=== PATIENT | female | born 1980 | race Caucasian/White ===

== ENCOUNTER 2020-08-17 11:15 | Outpatient (CLI) | payer OTHER, SELFPAY ==
[2020-08-18 14:03] LABS: SARS-CoV-2 RNA PCR Negative
== END 2020-08-17 11:16 | disposition home or self-care (01) ==
PROVIDERS: PCP Family Medicine; Visit Provider Family Medicine
DX: Z20.828 Contact with and (suspected) exposure to other viral communicable diseases (principal)
CPT/HCPCS: 87635; C9803; U0003

== ENCOUNTER 2020-11-08 12:58 | Emergency (ER) | payer OTHER, SELFPAY ==
[2020-11-08 13:34] VITALS: BP 139/103; PULSE 92; RESP 16; TEMP 37.6; O2SAT 97
--- NOTE | 2020-11-08 13:39 | ED.DENTAL ---
HPI - Dental/Oral General Chief complaint: Dental/Oral Stated complaint: Swollen left side of face Time Seen by Provider: 11/08/20 13:50 Source: patient Mode of arrival: ambulatory Limitations: no limitations History of Present Illness HPI Narrative: 40-year-old woman comes in today complaining of 3 days of left jaw swelling adjacent to a broken tooth. The tooth has been broken for 2 months and she is scheduled to have surgery on it in mid November. Patient states that is she has pain with eating and drinking and states that she has been urinating less than usual. She denies difficulty breathing, fever, vomiting. She states the pain radiates to her left ear and down to her neck. MD Complaint: tooth pain Onset (ago): day(s) (3) Duration: constant Severity: severe Relieving factors: nothing Exacerbating factors: chewing and drinking fluids Associated symptoms: gum swelling Treatment prior to arrival: oral analgesic Related Data Home Medications Medication Instructions Recorded Confirmed alprazolam 0.5 mg PO HS PRN 11/08/20 11/08/20 hydrocodone-acetaminophen 1 tablet PO Q6H PRN 11/08/20 11/08/20 tramadol 50 mg PO QID 11/08/20 11/08/20 Allergies Allergy/AdvReac Type Severity Reaction Status Date / Time Sulfa (Sulfonamide Allergy Mild rash Unverified 10/27/18 11:04 Antibiotics) sulfamethoxazole Allergy Mild rash Unverified 10/27/18 11:04 trimethoprim Allergy Mild rash Unverified 10/27/18 11:04 Review of Systems Constitutional: Constitutional: Denies chills and Denies fever(s) Eyes: Eyes: Reports change in vision and Denies photophobia Comments: complains of blurry vision in her left eye. ENT: Denies dysphagia, Denies nasal congestion and Denies sore throat Cardiovascular: Cardiovascular: Denies chest pain and Denies radiating jaw, neck or arm pain Respiratory: Respiratory: Denies cough and Denies dyspnea Gastrointestinal: Gastrointestinal: Denies abdominal pain, Denies nausea and Denies vomiting Genitourinary: Genitourinary: Denies dysuria Comments: Decreased urination Musculoskeletal: Musculoskeletal: Denies arthralgias and Denies joint swelling Integumentary/Breasts: Skin/Breast: Denies pruritus, Denies erythema and Denies rash Neurologic: Denies vertigo, Denies dizziness and Denies syncope Hematologic/Lymphatic: Hematologic/Lymphatic: Denies easy bleeding and Denies easy bruising Allergic/Immunologic: Allergic/Immunologic: Denies lip swelling and Denies throat swelling PMFSH Past Medical History Medical History Anxiety Chronic neck pain Fibromyalgia Migraine Surgical History Surgical History History of endometrial ablation History of tubal ligation Social History Social History (Updated 11/08/20 @ 13:59 by Josh Ferreira MD) Smoking status: Never smoker Substance use: never Living arrangements: with family Exam Const: General: healthy appearing and alert Orientation/consciousness: patient oriented x3 Limitations: no limitations Other: moderate acute distress. HENMT: Head: normal to inspection Ears: external ears normal, TM's normal bilaterally and EAC's normal General nose exam: Normal nares present Mouth: Yes moist mucous membranes Throat: posterior oropharynx normal Other: Fractured 2nd molar with adjacent buccal gingival swelling and swelling over the lateral mandible. There is no overlying erythema or fluctuance. Submandibular tenderness with mobile Submandibular lymph nodes on the left. Eyes: Conjunctivae: conjunctivae normal EOM: EOMs intact bilaterally Resp: Effort & Inspection: normal respiratory effort and not labored Auscultation: clear to auscultation bilaterally, no rales, no rhonchi and no wheezes Cardio: Rate: regular rate Rhythm: regular rhythm Heart sounds: no murmurs Skin: General skin exam: normal color, no jaundice and no p
== END 2020-11-08 14:16 | disposition home or self-care (01) ==
PROVIDERS: Emergency Provider Emergency Medicine; PCP Family Medicine
DX: K04.7 Periapical abscess without sinus (principal)
CPT/HCPCS: 99283

== ENCOUNTER 2021-10-06 15:17 | Outpatient (CLI) | payer OTHER, SELFPAY ==
[2021-10-06 18:41] LABS: SARS-CoV-2 Ag Negative (Negative)
== END 2021-10-06 15:18 | disposition home or self-care (01) ==
LOC: CHSLAB 15:26
PROVIDERS: PCP Family Medicine; Visit Provider Family Medicine
DX: Z20.822 Contact with and (suspected) exposure to COVID-19 (principal)
CPT/HCPCS: 87426; C9803

== ENCOUNTER 2022-01-26 13:04 | Outpatient (CLI) | payer OTHER, SELFPAY ==
--- NOTE | ~2022-01-26 | MMUS_ITS ---
EXAMINATION: MM diagnostic virginie BI w aide, US breast LT limited HISTORY: Bilateral breast pain TECHNIQUE: Additional 3-D tomosynthesis images of the breasts were performed and synthetic 2-D images were generated. CAD analysis was submitted and interpreted. High resolution bilateral limited breast ultrasound was performed. COMPARISON: None BREAST PARENCHYMAL COMPOSITION: Breast composed of scattered areas of fibroglandular density FINDINGS: MAMMOGRAPHIC FINDINGS: There are no suspicious masses, calcifications or architectural distortion in either breast to sugges t malignancy. ULTRASOUND: Limited left breast ultrasound: Normal heterogeneous echotexture without focal solid or cystic mass. IMPRESSION: 1. No evidence for malignancy in either breast. 2. Routine yearly screening mammogram and regular clinical breast examination are recommended. Reviewed, dictated and finalized at location A. IMPRESSION: 1. No evidence for malignancy in either breast. 2. Routine yearly screening mammogram and regular clinical breast examination a re recommended.
[2022-01-26 13:16] LABS: Basophils Absolute Auto 0.09 K/mm3 (0.00-0.10); Basophils Percent Auto 0.8 % (0.0-1.0); Eosinophils Percent Auto 1.8 % (1.0-6.0); Hematocrit 42.6 % (35.0-49.0); Hemoglobin 13.9 g/dL (12.0-15.0); Immature Granulocyte Absolute 0.03 K/mm3 (0.00-0.00); Immature Granulocyte Percent A 0.3 % (0.0-0.0); Lymphocytes Absolute Auto 3.56 K/mm3 (1.10-4.50); Lymphocytes Percent Auto 32.7 % (18.0-42.0); Mean Corpuscular HGB Conc 32.6 g/dL (32.0-36.0); Mean Corpuscular Hemoglobin 32.4 pg (27.0-31.0); Mean Corpuscular Volume 99.3 fL (78.0-102.0); Mean Platelet Volume 10.6 fl (9.2-11.8); Monocytes Absolute Auto 0.59 K/mm3 (0.10-0.90); Monocytes Percent Auto 5.4 % (2.0-11.0); Neutrophils Absolute Auto 6.4 K/mm3 (1.7-7.2); Platelet Count Result 183 K/mm3 (150-420); Red Blood Count 4.29 M/mm3 (4.20-5.40); White Blood Count 10.9 K/mm3 (4.8-10.8)
[2022-01-26 13:48] LABS: Alanine Aminotransferase 21 U/L (14-59); Albumin Level 3.8 g/dL (3.4-5.0); Alkaline Phosphatase 54 U/L (46-116); Anion Gap 7 mmol/L (8-16); Aspartate Amino Transferase 13 U/L (15-37); Bilirubin,Total 0.3 mg/dL (0.00-1.00); Blood Urea Nitrogen 13 mg/dL (7-18); Calcium 8.6 mg/dL (8.5-10.1); Carbon Dioxide 27 mmol/L (21-32); Chloride 105 mmol/L (98-108); Estimated Glomerular Filt Rate > 60; Glucose 81 mg/dL (70-99); Osmolality Calculated 287 mOsm/kg (285-295); Potassium 4.1 mmol/L (3.5-5.1); Sodium 139 mmol/L (136-145); Thyroid Stimulating Hormone 0.96 uIU/mL (0.36-3.74); Total Protein 7.2 g/dL (6.4-8.2)
[2022-01-29 13:18] LABS: Prolactin 8.5 ng/mL (***)
== END 2022-01-26 13:05 | disposition home or self-care (01) ==
PROVIDERS: PCP Family Medicine; Visit Provider Family Medicine
DX: R53.83 Other fatigue (principal); N63.0 Unspecified lump in unspecified breast
CPT/HCPCS: 36415; 76642; 77062; 77066; 80053; 84146; 84443; 85025; G0279

== ENCOUNTER 2022-04-23 16:11 | Outpatient (CLI) | payer OTHER, SELFPAY ==
[2022-04-23 16:59] LABS: SARS-CoV-2 RNA PCR Negative (Negative)
[2022-04-24 08:09] LABS: Influenza A QL RT-PCR Negative (Negative); Influenza B QL RT-PCR Negative (Negative)
== END 2022-04-23 16:12 | disposition home or self-care (01) ==
LOC: CHSLAB 16:13
PROVIDERS: PCP Family Medicine; Visit Provider Family Medicine
DX: R05.9 Cough, unspecified (principal); Z20.822 Contact with and (suspected) exposure to COVID-19
CPT/HCPCS: 87502; C9803; U0003; U0005

== ENCOUNTER 2023-05-16 13:02 | Emergency (ER) | payer OTHER, SELFPAY ==
--- NOTE | ~2023-05-16 | US_ITS ---
EXAMINATION: US pelvic complete DATE: 05/16/2023 13:50 INDICATION: Heavy menstrual bleeding with cramping, history of endometrial ablation TECHNIQUE: Multiple transabdominal and endovaginal sonographic images of the pelvis were obtained. COMPARISON: 09/11/2018 FINDINGS: The uterus measures 8.6 x 5.1 x 4.8 cm. The endometrial complex measures 8 mm. There is a s mall amount of endometrial fluid in the lower uterine segment. The right ovary is not visualized raman audrey no right adnexal abnormality is seen. The left ovary measures 2.3 x 1.6 x 2.0 cm. There is no de e fluid in the pelvis. IMPRESSION: 1. Small amount of endometrial fluid in the lower uterine segment of unclear etiology or significance . Reviewed, dictated and finalized at location L. IMPRESSION: 1. Small amount of endometrial fluid in the lower uterine segment of unclear et iology or significance.
[2023-05-16 13:13] VITALS: BP 136/87; PULSE 88; RESP 21; TEMP 37; O2SAT 99
[2023-05-16 13:15] VITALS: BP 136/87; PULSE 88; RESP 21; TEMP 37; O2SAT 99
[2023-05-16 13:52] LABS: Basophils Absolute Auto 0.07 K/mm3 (0.00-0.10); Basophils Percent Auto 0.6 % (0.0-1.0); Eosinophils Absolute Auto 0.28 K/mm3 (0.02-0.50); Eosinophils Percent Auto 2.5 % (1.0-6.0); Hematocrit 42.6 % (35.0-49.0); Hemoglobin 14.5 g/dL (12.0-15.0); Immature Granulocyte Absolute 0.05 K/mm3 (0.00-0.00); Immature Granulocyte Percent A 0.4 % (0.0-0.0); Lymphocytes Absolute Auto 3.16 K/mm3 (1.10-4.50); Lymphocytes Percent Auto 28.3 % (18.0-42.0); Mean Corpuscular Volume 96.8 fL (78.0-102.0); Mean Platelet Volume 10.5 fl (9.2-11.8); Monocytes Absolute Auto 0.51 K/mm3 (0.10-0.90); Monocytes Percent Auto 4.6 % (2.0-11.0); Neutrophils Absolute Auto 7.1 K/mm3 (1.7-7.2); Neutrophils Percent Auto 63.6 % (50.0-70.0); Platelet Count Result 200 K/mm3 (150-420); Red Cell Distribution Width 11.9 % (11.6-14.4); White Blood Count 11.2 K/mm3 (4.8-10.8)
[2023-05-16 14:07] LABS: INR 0.9; Partial Thromboplastin Time 34.7 SEC (23.90-30.70); Prothrombin Time 10.3 Seconds (9.50-12.10)
--- NOTE | 2023-05-16 14:14 | ED.FEMALEGU ---
HPI - Female Genitourinary General Chief complaint: Vaginal Bleeding Stated complaint: excessive bleeding; chest pain Time Seen by Provider: 05/16/23 13:13 Source: patient Mode of arrival: ambulatory Limitations: no limitations History of Present Illness HPI Narrative: This is a 42-year-old female with no significant past medical history presents with heavy menstrual bleeding that started approximately 2 to 3 days ago and was [place] family in [place] and noticed that her blood pressure was elevated patient continued to have heavy menstrual plea cycle and bleeding did have an ablation performed approximately 3 years ago and has not had a menstrual period since that time. Currently there is no fever chills no abdominal pain no flank pain no dysuria no chest pain no nausea vomiting or shortness of breath. MD elicited complaint: vaginal bleeding Related Data Home Medications Medication Instructions Recorded Confirmed hydrocodone 10 mg-acetaminophen 1 tablet PO Q6H PRN Pain 11/08/20 05/16/23 325 mg tablet tramadol 50 mg tablet 50 mg PO QID 11/08/20 05/16/23 Allergies Allergy/AdvReac Type Severity Reaction Status Date / Time Sulfa (Sulfonamide Allergy Mild rash Verified 05/16/23 13:14 Antibiotics) sulfamethoxazole Allergy Mild rash Verified 05/16/23 13:14 trimethoprim Allergy Mild rash Verified 05/16/23 13:14 Review of Systems Review of Systems: All systems reviewed & are unremarkable except as noted in HPI and below PMFSH Past Medical History Medical History Anxiety Chronic neck pain Fibromyalgia Migraine Surgical History Surgical History History of endometrial ablation History of tubal ligation Social History Social History Smoking status: Never smoker Substance use: never Living arrangements: with family Exam Const: General: healthy appearing Nutritional Appearance: well nourished Orientation/consciousness: patient oriented x3 Limitations: no limitations HENMT: Head: normal to inspection Neck: Neck: normal visual inspection Chest: Chest palpation & inspection: normal inspection of the chest Resp: Effort & Inspection: normal respiratory effort Auscultation: clear to auscultation bilaterally Cardio: Rate: regular rate Rhythm: regular rhythm GI: GI Palp: Yes Soft to palpation Auscultation: normal bowel sounds : General: Yes bladder normal to palpation Other: Pelvic exam showed small amount of blood in the vaginal vault Urinary Catheter: Urinary Catheter: patent and draining Back/Spine/Pelvis: Back: no CVA tenderness Skin: General skin exam: normal color Rashes: no rashes Neuro: General: patient oriented x3 Cranial nerves: Yes Nystagmus not present Course Course Emergency Course: patient had a pelvic ultrasound that was reviewed with patient, blood work including CBC and PT PTT and INR and beta HCG which were all within normal limits, the patient with some mild cramping received a g of Tylenol p.o., and patient also received 25mg IM Premarin. Vital Signs Vital signs: Vital Signs Temperature 37.0 C 05/16/23 13:13 Pulse Rate 88 05/16/23 13:13 Respiratory Rate 21 H 05/16/23 13:13 Blood Pressure 136/87 05/16/23 13:13 Pulse Oximetry 99 05/16/23 13:13 Oxygen Delivery Room Air 05/16/23 13:13 Temperature 37.0 C 05/16/23 13:15 Pulse Rate 88 05/16/23 13:15 Respiratory Rate 21 H 05/16/23 13:15 Blood Pressure 136/87 05/16/23 13:15 Pulse Oximetry 99 05/16/23 13:15 Oxygen Delivery Room Air 05/16/23 13:15 MDM - Female Genitourinary Lab Data 05/16/23 13:48 Labs: Lab Results 05/16/23 Range/Units 13:48 WBC 11.2 H (4.8-10.8) K/mm3 RBC 4.40 (4.20-5.40) M/mm3 Hgb 14.5 (12.0-15.0) g/dL Hct 42.6 (35.0-49.0) %
[2023-05-16] MEDS: ACETAMINOPHEN 500 MG TABLET 1000 MG PO (14:25)
[2023-05-16 14:27] LABS: Beta HCG Quantitative < 1.00 mIU/mL (0-6)
[2023-05-16 14:30] VITALS: BP 123/81; PULSE 69; RESP 16; O2SAT 100
[2023-05-16 14:50] VITALS: BP 129/75; PULSE 63; RESP 16; TEMP 36.4; O2SAT 100
== END 2023-05-16 14:53 | disposition home or self-care (01) ==
PROVIDERS: Emergency Provider Emergency Medicine; PCP Family Medicine
DX: N93.8 Other specified abnormal uterine and vaginal bleeding (principal); M54.2 Cervicalgia; G89.29 Other chronic pain; M79.7 Fibromyalgia; Z79.891 Long term (current) use of opiate analgesic
CPT/HCPCS: 36415; 76856; 84702; 85025; 85610; 85730; 99284

== ENCOUNTER 2023-11-21 15:35 | Emergency (ER) | payer OTHER, SELFPAY ==
[2023-11-21] VITALS (7 sets, daily range): BP systolic 116–143; BP diastolic 69–83; PULSE 77–92; RESP 14–18; TEMP 36.4–36.7; O2SAT 96–100
--- NOTE | ~2023-11-21 | XR_ITS ---
EXAMINATION: XR chest 1V portable INDICATION: Cough and congestion TECHNIQUE: Portable AP chest at 1614 hours COMPARISON: 11/29/2016 FINDINGS: The lungs are free of acute opacities. No pleural effusion or pneumothorax. The cardiomedia stinal silhouette is normal. IMPRESSION: 1. No acute cardiopulmonary abnormality. Reviewed, dictated and finalized at location L. SOTING ENGINEER
--- NOTE | ~2023-11-21 | CT_ITS ---
EXAMINATION: CT brain wo con INDICATION: Headache COMPARISON: 12/22/2015 TECHNIQUE: Standard unenhanced head CT. The dose-length product (DLP) was 605.33 mGy-cm. The mA was a djusted according to patient size. Iterative reconstruction technique was employed. FINDINGS: No intracranial hemorrhage, acute infarction, or abnormal mass lesion. The ventricles are n ormal. No abnormal mass effect or midline shift. The barahona-white matter differentiation is normal. The basal cisterns are patent. The orbits are normal. There are chronic calcifications of the basal gang consuelo. The paranasal sinuses, mastoids and calvarium are normal. IMPRESSION: 1. No acute intracranial abnormality. Reviewed, dictated and finalized at location L. TERM CARE PHLEBOTOMIST
--- NOTE | 2023-11-21 15:40 | ECG_ITS ---
Measurements Intervals [place] Rate: 85 P: 60 NE: 141 QRS: 67 QRSD: 91 T: 40 QT: 358 QTc: 428 Interpretive Statements SINUS RHYTHM NORMAL ELECTROCARDIOGRAM NO PREVIOUS ECG AVAILABLE FOR COMPARISON Electronically Signed On 11-22-2023 12:05:38 PIERCER by Mc Antoine M.D.
[2023-11-21 16:07] LABS: Hematocrit 42.5 % (35.0-49.0); Hemoglobin 14.1 g/dL (12.0-15.0); Mean Corpuscular HGB Conc 33.2 g/dL (32.0-36.0); Mean Corpuscular Hemoglobin 32.3 pg (27.0-31.0); Mean Corpuscular Volume 97.3 fL (78.0-102.0); Mean Platelet Volume 10.2 fl (9.2-11.8); Platelet Count Result 198 K/mm3 (150-420); Red Blood Count 4.37 M/mm3 (4.20-5.40); Red Cell Distribution Width 12.8 % (11.6-14.4); White Blood Count 12.7 K/mm3 (4.8-10.8)
[2023-11-21 16:44] LABS: Alanine Aminotransferase 34 U/L (14-59); Albumin Level 3.5 g/dL (3.4-5.0); Alkaline Phosphatase 66 U/L (46-116); Anion Gap 11 mmol/L (8-16); Aspartate Amino Transferase 17 U/L (15-37); Bilirubin,Total 0.2 mg/dL (0.00-1.00); Blood Urea Nitrogen 20 mg/dL (7-18); Calcium 8.5 mg/dL (8.5-10.1); Carbon Dioxide 28 mmol/L (21-32); Chloride 103 mmol/L (98-108); Estimated Glomerular Filt Rate > 60; Glucose 103 mg/dL (70-99); Osmolality Calculated 296 mOsm/kg (285-295); Potassium 3.5 mmol/L (3.5-5.1); Sodium 142 mmol/L (136-145); Total Protein 7.5 g/dL (6.4-8.2)
[2023-11-21 16:58] LABS: Atypical Lymphocytes Present; Band Neutrophils Percent 0 % (0-6); Lymphocytes Absolute Manual 6.22 K/mm3 (1.1-4.5); Lymphocytes Percent Manual 49 % (18-44); Monocytes Absolute Manual 0.25 K/mm3 (0.1-0.90); Monocytes Percent Manual 2 % (3-9); Neutrophils Absolute Manual 6.22 K/mm3 (1.7-7.2); Neutrophils Percent Manual 49 % (46-73); Total Cells Counted 100
[2023-11-21 17:07] LABS: SARS-CoV-2 RNA PCR Negative (Negative)
[2023-11-21 17:15] LABS: Influenza A QL RT-PCR Negative (Negative); Influenza B QL RT-PCR Negative (Negative); RSV RNA, RT-PCR Negative (Negative)
--- NOTE | 2023-11-21 17:30 | ED.URI ---
HPI - URI/Sore Throat General Chief Complaint: Chest Pain Stated Complaint: chest pain, headache. Time Seen by Provider: 11/21/23 15:42 Source: patient Mode of arrival: ambulatory Limitations: no limitations History of Present Illness HPI Narrative: this is 43-year-old female with history migraines, has been having cough congestion and nasal discharge with no shortness of breath no audible wheezing has been having a headache that she describes as different than her typical migraines, with no fever chills no nausea vomiting no neck stiffness no abdominal pain no dysuria. MD elicited complaint: cough and nasal congestion Onset (ago): day(s) Related Data Home Medications Medication Instructions Recorded Confirmed hydrocodone 10 mg-acetaminophen 1 tablet PO Q6H PRN Pain 11/08/20 11/21/23 325 mg tablet tramadol 50 mg tablet 50 mg PO QID 11/08/20 11/21/23 Allergies Allergy/AdvReac Type Severity Reaction Status Date / Time Sulfa (Sulfonamide Allergy Mild rash Verified 11/21/23 15:36 Antibiotics) sulfamethoxazole Allergy Mild rash Verified 11/21/23 15:36 trimethoprim Allergy Mild rash Verified 11/21/23 15:36 Review of Systems Review of Systems: All systems reviewed & are unremarkable except as noted in HPI and below PMFSH Past Medical History Medical History Anxiety Chronic neck pain Fibromyalgia Migraine Surgical History Surgical History History of endometrial ablation History of tubal ligation Social History Social History Smoking status: Never smoker Substance use: never Living arrangements: with family Exam Const: General: healthy appearing Nutritional Appearance: well nourished Orientation/consciousness: patient oriented x3 HENMT: Head: normal to inspection Eyes: Conjunctivae: conjunctivae normal Neck: Neck: normal visual inspection, no lymphadenopathy and no meningeal signs Chest: Chest palpation & inspection: normal inspection of the chest Resp: Effort & Inspection: normal respiratory effort Auscultation: clear to auscultation bilaterally Cardio: Rate: regular rate Rhythm: regular rhythm : General: Yes bladder normal to palpation Neuro: General: patient oriented x3, moves all extremities, no meningeal signs and no focal motor deficits Extrem: General: normal to inspection Course Course Emergency Course: Labs reviewed with patient CT scan with no acute abnormalities, [place] [id number] and will prescribe a Z-Sid for upper respiratory tract infection. Otherwise COVID influenza and RSV negative Vital Signs Vital signs: Vital Signs Temperature 36.4 C 11/21/23 15:35 Pulse Rate 91 11/21/23 15:35 Respiratory Rate 17 11/21/23 15:35 Blood Pressure 143/83 H 11/21/23 15:35 Pulse Oximetry 96 11/21/23 15:35 Oxygen Delivery Room Air 11/21/23 15:35 Temperature 36.4 C 11/21/23 15:35 Pulse Rate 91 11/21/23 15:35 Respiratory Rate 17 11/21/23 15:35 Blood Pressure 143/83 H 11/21/23 15:35 Pulse Oximetry 96 11/21/23 15:35 Oxygen Delivery Room Air 11/21/23 15:35 MDM - URI/Sore Throat Lab Data 11/21/23 16:04 11/21/23 16:04 Labs: Lab Results 11/21/23 11/21/23 Range/Units 16:04 16:24 WBC 12.7 H (4.8-10.8) K/mm3 RBC 4.37 (4.20-5.40) M/mm3 Hgb 14.1 (12.0-15.0) g/dL Hct 42.5 (35.0-49.0) % MCV 97.3 (78.0-102.0) fL MCH 32.3 H (27.0-31.0) pg MCHC 33.2 (32.0-36.0) g/dL RDW 12.8 (11.6-14.4) % Plt Count 198 (150-420) K/mm3 MPV 10.2 (9.2-11.8) fl Immature Gran % (Auto) Not Reportable Neut % (Auto) Not Reportable Lymph % (Auto) Not Reportable Barron % (Auto) Not Reportable Eos % (Auto) Not Reportable Baso % (Auto) Not Reportable Lymph # (Auto)
[2023-11-21 17:41] LABS: Platelet Estimate Adequate (Adequate)
== END 2023-11-21 17:47 | disposition home or self-care (01) ==
PROVIDERS: Emergency Provider Emergency Medicine; PCP Family Medicine
DX: J06.9 Acute upper respiratory infection, unspecified (principal); R51.9 Headache, unspecified; Z20.822 Contact with and (suspected) exposure to COVID-19; Z79.891 Long term (current) use of opiate analgesic
CPT/HCPCS: 36415; 70450; 71045; 80053; 85025; 87637; 93005; 99284

== ENCOUNTER 2023-11-23 16:52 | Emergency (ER) | payer OTHER, SELFPAY ==
[2023-11-23 17:01] VITALS: BP 155/95; PULSE 82; RESP 20; TEMP 36.3; O2SAT 97
[2023-11-23] MEDS: SUMAtriptan SUCCINATE 25 MG TABLET 100 MG PO (17:43)
[2023-11-23] MEDS: KETOROLAC (*BKC) 60 MG/2 ML VIAL IM (19:20)
[2023-11-23] MEDS: LORazepam (*CRX) 1 MG TABLET PO (19:20)
[2023-11-23] MEDS: DOXYCYCLINE HYCLATE 100 MG TABLET PO (19:20)
--- NOTE | 2023-11-23 19:28 | PC.NURSE ---
pt reports ear pain has improved, however headache remains at 10/10. pt reports a throbbing pain. pt reports sig other dropped her off and is transport home. pt given medication as orderded without difficulty. warm blanket provided. lights are off, pt is watching tv without distress, ice pack on forehead. pt requested first dose of new abx in er tonight, it was administered as ordered. will continue to monitor.
--- NOTE | 2023-11-23 19:53 | PC.NURSE ---
PT IS SITTING UP ON STRETCHER, REPORTS THE PRESSURE TO RT SIDE OF HEAD IS GETTING BETTER. ERP IS NOTIFIED.
--- NOTE | 2023-11-23 19:59 | ED.HA ---
HPI - Headache General Chief Complaint: Headache Stated Complaint: migraine; neck pain Time Seen by Provider: 11/23/23 17:10 Source: patient Mode of arrival: ambulatory Limitations: no limitations History of Present Illness HPI Narrative: Patient is a 43-year-old female with significant past medical history that presents today for headache. Patient states that she was recently seen here in the emergency department for an upper respiratory infection and given a Z-Sid and sent home. She states since then she has felt worse and has developed a very bad migraine headache. She states the headache is started on a right-side her head and wraps around to the front. Says it is very painful and also her ear is painful as well. She is on think the Z-Sid is working as she has been feeling worse as well. MD elicited complaint: headache and migraine Onset (ago): day(s) Onset description: gradually Location: right and frontal Severity: mild Quality & Timing: aching and throbbing Exacerbating factors: exertion, movement of head/neck and noise Relieving factors: nothing Context: occurred at rest Associated symptoms: none Treatments prior to arrival: acetaminophen and ibuprofen Related Data Home Medications Medication Instructions Recorded Confirmed hydrocodone 10 mg-acetaminophen 1 tablet PO Q6H PRN Pain 11/08/20 11/23/23 325 mg tablet tramadol 50 mg tablet 50 mg PO QID 11/08/20 11/23/23 Allergies Allergy/AdvReac Type Severity Reaction Status Date / Time Sulfa (Sulfonamide Allergy Mild rash Verified 11/23/23 17:13 Antibiotics) sulfamethoxazole Allergy Mild rash Verified 11/23/23 17:13 trimethoprim Allergy Mild rash Verified 11/23/23 17:13 Review of Systems Review of Systems: All systems reviewed & are unremarkable except as noted in HPI and below Constitutional: Constitutional: Reports as per HPI Eyes: Eyes: Reports no additional eye complaints ENT: Reports as per HPI Cardiovascular: Cardiovascular: Reports no additional cardiovascular complaints Respiratory: Respiratory: Reports no additional respiratory complaints Gastrointestinal: Gastrointestinal: Reports no additional gastrointestinal complaints Genitourinary: Genitourinary: Reports no additional female genitourinary complaints Musculoskeletal: Musculoskeletal: Reports no additional musculoskeletal complaints Integumentary/Breasts: Skin/Breast: Reports system reviewed and no additional complaints, except as docu Neurologic: Reports system reviewed and no additional complaints, except as documented Psychiatric: Psychiatric: Reports no additional psychiatric complaints Endocrine: Endocrine: Reports no additional endocrine complaints Hematologic/Lymphatic: Hematologic/Lymphatic: Reports no additional hematologic/lymphatic complaints Allergic/Immunologic: Allergic/Immunologic: Reports no additional allergic/immunologic complaints [facility] Past Medical History Medical History Anxiety Chronic neck pain Fibromyalgia Migraine Surgical History Surgical History History of endometrial ablation History of tubal ligation Social History Social History Smoking status: Never smoker Substance use: never Living arrangements: with family Exam Const: General: healthy appearing Nutritional Appearance: well nourished Orientation/consciousness: patient oriented x3 HENMT: Head: normal to inspection Ears: external ears normal Face/Nose/Sinus: Normal external nose present Face and sinus: normal facial exam Eyes: Conjunctivae: conjunctivae normal Pupils: Equal, round and reactive pupils present EOM: EOMs intact bilaterally Neck: Neck: normal visual inspection Chest: Chest palpation & inspection: normal inspection of the chest Resp: Effort & Inspection: normal respiratory effort Ausc
== END 2023-11-23 20:10 | disposition home or self-care (01) ==
PROVIDERS: Emergency Provider Family Medicine; PCP Family Medicine
DX: G43.909 Migraine, unspecified, not intractable, without status migrainosus (principal); Z79.891 Long term (current) use of opiate analgesic
CPT/HCPCS: 96372; 99283; A9270; J1885

== ENCOUNTER 2024-05-25 11:04 | Emergency (ER) | payer OTHER, SELFPAY ==
[2024-05-25 11:04] VITALS: BP 155/99; PULSE 92; RESP 16; TEMP 36.6; O2SAT 99
--- NOTE | 2024-05-25 11:19 | ED.GENADULT ---
HPI - General Adult General Chief complaint: Unspecified Stated complaint: recal bleeding Time Seen by Provider: 05/25/24 11:19 Source: patient Mode of arrival: ambulatory Limitations: no limitations History of Present Illness HPI narrative: 43 YEARS OLD WHITE FEMALE, NOTICED BLOOD COMING OUT OF HER RECALL ABOUT BOWEL MOVEMENT THIS MORNING. PRESSURE RED BRIGHT BLOOD. PATIENT REPORTS SOME DISCOMFORT AT THE ANUS IN THE LAST FEW DAYS. HISTORY OF HEMORRHOIDS. SHE DENIES ANY NAUSEA, VOMITING, ABDOMINAL PAIN FOR HISTORY OF GI BLEED. PATIENT ON TRAMADOL AND NORCO FOR CHRONIC PAIN Related Data Home Medications Medication Instructions Recorded Confirmed hydrocodone 10 mg-acetaminophen 1 tablet PO Q6H PRN Pain 11/08/20 05/25/24 325 mg tablet tramadol 50 mg tablet 50 mg PO QID 11/08/20 05/25/24 Allergies Allergy/AdvReac Type Severity Reaction Status Date / Time Sulfa (Sulfonamide Allergy Mild rash Verified 05/25/24 11:21 Antibiotics) sulfamethoxazole Allergy Mild rash Verified 05/25/24 11:21 trimethoprim Allergy Mild rash Verified 05/25/24 11:21 Review of Systems Review of Systems: All systems reviewed & are unremarkable except as noted in HPI and below PMFSH Past Medical History Medical History Anxiety Chronic neck pain Fibromyalgia Migraine Surgical History Surgical History History of endometrial ablation History of tubal ligation Social History Social History Smoking status: Never smoker Substance use: never Living arrangements: with family Exam Narrative: GENERAL APPEARANCE: WELL-DEVELOPED, WELL-NOURISHED SKIN: NORMAL COLOR HEAD: NORMOCEPHALIC, NONTRAUMATIC CHEST AND RESPIRATORY: AIRWAY PATENT, NO RESPIRATORY DISTRESS, NO ACCESSORY MUSCLE USE HEART: REGULAR RATE/RHYTHM ABDOMEN: SOFT, NONTENDER, NO ORGANOMEGALY, QUIET BOWEL SOUNDS, ANAL EXAM SHOWED 1 EXTERNAL HEMORRHOID, HAVE AN OPENING IN IT, SURROUNDED BY BLOOD AND BLOOD CLOTS. THE HEMORRHOID IS NOT THROMBOSED AT THIS TIME, SOFT, NOT ACTIVELY BLEEDING. VASCULAR: NORMAL PERIPHERAL PULSES, NORMAL CAPILLARY REFILL. MUSCULOSKELETAL: NORMAL RANGE OF MOTION, NONTENDER BACK NEUROLOGIC: ALERT AND ORIENTED ?3, ORE FIELDER IS NORMAL TESTED, NO GROSS MOTOR DEFICIT Medical Decision Making Differential Diagnosis Differential Diagnosis: THROMBOSED HEMORRHOIDS WITH BURST IS MY CONCERN. PHYSICAL EXAM SHOWED BLOOD CLOT AT THE HEMORRHOID AREA, THE HEMORRHOID RIGHT NOW IS SOFT, WITHOUT ANY ACTIVE BLEEDING. MY PLAN TO DISCHARGE PATIENT ON MIRALAX AND ANUSOL SUPPOSITORY. Discharge Plan Discharge Clinical Impression: Bleeding external hemorrhoids Patient Disposition: Home, Self-Care Condition: Improved Instructions: Hemorrhoids (ED) Additional Instructions: RETURN IF SYMPTOMS ARE WORSENING , CALL YOUR FAMILY PHYSICIAN FOR APPOINTMENT, TAKE TYLENOL NEEDED FOR ACHES AND PAIN, CONTINUE HOME MEDICATIONS. AVOID LONG SITTING OR LONG STANDING MIRALAX ONCE A DAY TYLENOL NEEDED SITS PATH Prescriptions: New hydrocortisone acetate [Anusol-HC] 25 mg suppository 25 mg RECTAL BID Qty: 20 0RF No Action hydrocodone-acetaminophen 10-325 mg tablet 1 tablet PO Q6H PRN (Reason: Pain) tramadol 50 mg tablet 50 mg PO QID azithromycin [Zithromax Z-Sid] 250 mg tablet See Rx Instructions .ROUTE .COMPLEX Qty: 6 0RF Rx Instructions: For 250 mg dose pack: take 500 mg today (day 1), then 250 mg for 4 days (days 2-5) doxycycline hyclate 100 mg tablet 100 mg PO BID Qty: 20 0RF
[2024-05-25 11:35] VITALS: BP 155/99; PULSE 92; RESP 16; TEMP 36.6; O2SAT 99
== END 2024-05-25 11:35 | disposition home or self-care (01) ==
PROVIDERS: Emergency Provider Emergency Medicine; PCP Family Medicine
DX: K64.4 Residual hemorrhoidal skin tags (principal); Z79.891 Long term (current) use of opiate analgesic
CPT/HCPCS: 99283